=== PATIENT | female | born 1960 | race Caucasian/White ===

== ENCOUNTER 2022-01-01 14:16 | Emergency (ER) | payer OTHER ==
[~2022-01-01] VITALS: Ht 157.5 cm; Wt 63.5 kg
[2022-01-01 14:24] VITALS: BP_SYST 97
[2022-01-01] MEDS ORDERED: NIRM1TAB PO (14:26)
[2022-01-01] MEDS ORDERED: PHEDM120 PO (14:27)
[2022-01-01 16:45] VITALS: BP_SYST 97
== END 2022-01-01 16:45 | disposition home or self-care (01) ==
LOC: SED 14:16
DX: U07.1 COVID-19 (principal); J06.9 Acute upper respiratory infection, unspecified; E11.9 Type 2 diabetes mellitus without complications; J44.9 Chronic obstructive pulmonary disease, unspecified; M79.10 Myalgia, unspecified site
CPT/HCPCS: 99283